=== PATIENT | male | born 1955 | race Caucasian/White ===

== ENCOUNTER 2016-12-13 03:30 | Emergency (ER) | payer OTHER ==
[~2016-12-13] VITALS: Ht 167.6 cm; Wt 101.0 kg
[~2016-12-13 03:30] MED LIST: AMLO-512 PO; ASPI-449 PO; ATOR10TA84; CLON0.2T PO; HYDR25TA PO; INSLAN SQ; METF1000 PO
[2016-12-13 06:54] VITALS: BP 110/74
== END 2016-12-13 06:57 | disposition home or self-care (01) ==
LOC: EMS 03:31
DX: S01.01XA Laceration without foreign body of scalp, initial encounter (principal); E11.9 Type 2 diabetes mellitus without complications; E78.00 Pure hypercholesterolemia, unspecified; I10 Essential (primary) hypertension; F17.210 Nicotine dependence, cigarettes, uncomplicated; Z79.4 Long term (current) use of insulin; Z88.0 Allergy status to penicillin; Z88.8 Allergy status to other drugs, medicaments and biological substances; Y00.XXXA Assault by blunt object, initial encounter; Y93.89 Activity, other specified; Y92.89 Other specified places as the place of occurrence of the external cause; Y99.8 Other external cause status
CPT/HCPCS: 12001; 70450; 82962; 99284

== ENCOUNTER 2018-02-18 05:53 | Emergency (ER) | payer OTHER ==
[~2018-02-18] VITALS: Ht 167.6 cm; Wt 101.0 kg
[2018-02-18 06:12] LABS: GLUCOSE,POINT OF CARE 209 MG/DL (70-110)
[2018-02-18] MEDS ORDERED: CYCLOBENZAPRINE HCL 10 MG TABLET PO ONE (07:45)
[2018-02-18] MEDS ORDERED: OxyCODONE HCL/ACETAMINOPHEN 5-325 MG TABLET PO ONE (07:45)
[2018-02-18 08:29] LABS: APPEARANCE,URINE CLEAR (CLEAR); BILIRUBIN,URINE NEGATIVE (NEGATIVE); GLUCOSE, URINE (UA) >=1000 mg/dL (NEGATIVE); KETONES,URINE NEGATIVE (NEGATIVE); LEUKOCYTE ESTERASE ,URINE NEGATIVE (NEGATIVE); NITRATE,URINE NEGATIVE (NEGATIVE); OCCULT BLOOD,URINE NEGATIVE (NEGATIVE); PH,URINE 5.5 (5.0-8.0); PROTEIN,URINE NEGATIVE (NEGATIVE); UROBILINOGEN,URINE 0.2 mg/dL (<=1.0)
[2018-02-18 08:49] LABS: BACTERIA,URINE None Seen /HPF (None Seen); RBC,URINE None Seen /HPF (0-2); WBC,URINE None Seen /HPF (0-5)
[2018-02-18 09:21] VITALS: BP 131/84
== END 2018-02-18 09:25 | disposition home or self-care (01) ==
LOC: EMS 05:53
DX: M51.36 Other intervertebral disc degeneration, lumbar region (principal); E11.9 Type 2 diabetes mellitus without complications; E78.00 Pure hypercholesterolemia, unspecified; I10 Essential (primary) hypertension; F17.210 Nicotine dependence, cigarettes, uncomplicated; Z88.0 Allergy status to penicillin; Z88.8 Allergy status to other drugs, medicaments and biological substances; Z79.4 Long term (current) use of insulin
CPT/HCPCS: 72131; 82962; 99285

== ENCOUNTER 2019-02-27 23:15 | Emergency (ER) | payer MEDICAID, OTHER ==
[~2019-02-27] VITALS: Ht 167.6 cm; Wt 104.5 kg
[~2019-02-27 23:15] MED LIST changes: -AMLO-512 PO; -METF1000 PO
[2019-02-27] MEDS ORDERED: INSLAN SQ (23:30)
[2019-02-27 23:39] LABS: GLUCOSE,POINT OF CARE 207 MG/DL (70-110)
[2019-02-28] MEDS ORDERED: SODIUM CHLORIDE 0.9% 1,000 ML IV ONE (00:30)
[2019-02-28 01:16] LABS: BASOPHILS % (AUTO) 1.2 % (0.0-2.0); EOSINOPHILS % (AUTO) 1.6 % (1.0-6.0); HEMATOCRIT 47.7 % (41-53); HEMOGLOBIN 15.7 g/dL (13.5-17.5); LYMPHOCYTES % (AUTO) 25.5 % (22.0-44.0); MEAN CORPUSCULAR HEMOGLOBIN 29.5 pg (26.0-34.0); MEAN CORPUSCULAR VOLUME 90 fL (80-100); MONOCYTES # (AUTO) 0.5 K/uL (0.1-1.0); MONOCYTES % (AUTO) 11.4 % (2.0-9.0); NEUTROPHILS # (AUTO) 2.4 K/uL (1.8-7.7); NEUTROPHILS % (AUTO) 60.3 % (40.0-70.0); PLATELET COUNT (AUTO) 188 K/uL (150-450); RED BLOOD CELL COUNT(AUTO) 5.33 MIL/uL (4.50-5.90); RED CELL DISTRIBUTION WIDTH 14.4 % (11.5-14.5)
[2019-02-28 01:20] LABS: APPEARANCE,URINE CLEAR (CLEAR); BILIRUBIN,URINE NEGATIVE (NEGATIVE); GLUCOSE, URINE (UA) NEGATIVE (NEGATIVE); KETONES,URINE NEGATIVE (NEGATIVE); LEUKOCYTE ESTERASE ,URINE NEGATIVE (NEGATIVE); NITRATE,URINE NEGATIVE (NEGATIVE); OCCULT BLOOD,URINE NEGATIVE (NEGATIVE); PROTEIN,URINE NEGATIVE (NEGATIVE)
[2019-02-28 01:21] LABS: CALCIUM, TOTAL 8.9 mg/dL (8.8-10.5); CREATININE 1.47 mg/dL (0.60-1.30); POTASSIUM 3.6 mmol/L (3.5-5.1)
[2019-02-28 01:27] LABS: ALBUMIN 3.7 g/dL (3.4-5.0); BILIRUBIN,TOTAL 0.7 mg/dL (0.1-1.0); TOTAL PROTEIN, SERUM 7.9 g/dL (6.4-8.2)
[2019-02-28 01:59] VITALS: BP 123/85
== END 2019-02-28 02:28 | disposition home or self-care (01) ==
LOC: EMS 23:17
DX: R19.7 Diarrhea, unspecified (principal); I10 Essential (primary) hypertension; E11.9 Type 2 diabetes mellitus without complications; E78.00 Pure hypercholesterolemia, unspecified; F17.210 Nicotine dependence, cigarettes, uncomplicated; Z88.0 Allergy status to penicillin; Z88.8 Allergy status to other drugs, medicaments and biological substances; Z79.4 Long term (current) use of insulin; Z79.899 Other long term (current) drug therapy
CPT/HCPCS: 36415; 80053; 81003; 82962; 83690; 85025; 96360; 99283; J7030

== ENCOUNTER 2019-12-07 13:05 | Emergency (ER) | payer MEDICAID ==
[~2019-12-07] VITALS: Ht 167.6 cm; Wt 81.8 kg
[2019-12-07 13:19] LABS: GLUCOSE,POINT OF CARE 69 MG/DL (70-110)
[2019-12-07] MEDS ORDERED: ACETAMINOPHEN 500 MG TABLET PO ONE ×2 (15:15→16:00)
[2019-12-07 17:07] VITALS: BP 121/95
== END 2019-12-07 17:15 | disposition left against medical advice (07) ==
LOC: EMS 13:06
DX: M13.851 Other specified arthritis, right hip (principal); E11.9 Type 2 diabetes mellitus without complications; E78.00 Pure hypercholesterolemia, unspecified; G89.29 Other chronic pain; I10 Essential (primary) hypertension; F17.210 Nicotine dependence, cigarettes, uncomplicated; Z98.890 Other specified postprocedural states; Z88.0 Allergy status to penicillin; Z88.5 Allergy status to narcotic agent; Z79.4 Long term (current) use of insulin; Z79.899 Other long term (current) drug therapy; W18.39XA Other fall on same level, initial encounter; Y93.89 Activity, other specified; Y92.89 Other specified places as the place of occurrence of the external cause; Y99.8 Other external cause status
CPT/HCPCS: 73502

== ENCOUNTER 2019-12-29 16:53 | Emergency (ER) | payer MEDICAID, OTHER ==
[~2019-12-29] VITALS: Ht 167.6 cm; Wt 100.0 kg
[2019-12-29 17:20] LABS: GLUCOSE,POINT OF CARE 142 MG/DL (70-110)
[2019-12-29] MEDS ORDERED: HYDROmorphone 2 MG/ML SYRINGE IVP ONE (17:30)
[2019-12-29] MEDS ORDERED: ONDANSETRON HCL 4 MG/2 ML VIAL IVP ONE (17:30)
[2019-12-29 17:42] LABS: BASOPHILS % (AUTO) 1.1 % (0.0-2.0); EOSINOPHILS % (AUTO) 3.2 % (1.0-6.0); HEMATOCRIT 44.5 % (41-53); HEMOGLOBIN 14.5 g/dL (13.5-17.5); LYMPHOCYTES # (AUTO) 1.4 K/uL (1.0-4.8); LYMPHOCYTES % (AUTO) 25.4 % (22.0-44.0); MEAN CORPUSCULAR HEMOGLOBIN 28.9 pg (26.0-34.0); MEAN CORPUSCULAR HGB CONC 32.5 G/dL (31.0-37.0); MEAN CORPUSCULAR VOLUME 89 fL (80-100); MONOCYTES # (AUTO) 0.4 K/uL (0.1-1.0); MONOCYTES % (AUTO) 7.5 % (2.0-9.0); NEUTROPHILS # (AUTO) 3.6 K/uL (1.8-7.7); NEUTROPHILS % (AUTO) 62.8 % (40.0-70.0); PLATELET COUNT (AUTO) 227 K/uL (150-450); RED CELL DISTRIBUTION WIDTH 15.3 % (11.5-14.5)
[2019-12-29 17:56] LABS: ANION GAP 9 mmol/L (8-16); CALCIUM, TOTAL 8.8 mg/dL (8.8-10.5); CARBON DIOXIDE 26 mmol/L (22-29); CHLORIDE 103 mmol/L (98-107); CREATININE 1.51 mg/dL (0.60-1.30); GLOMERULAR FILTR. RATE CALC 57 mL/min (>60); GLUCOSE,RANDOM 141 mg/dL (70-110); POTASSIUM 4.4 mmol/L (3.5-5.1); SODIUM SERUM 138 mmol/L (136-145); UREA NITROGEN, BLOOD 22 mg/dL (7-18)
[2019-12-29 18:05] LABS: LACTIC ACID 1.5 mmol/L (0.4-2.0)
[2019-12-29 18:21] LABS: ALANINE AMINOTRANSFERASE 31 U/L (12-78); ALBUMIN 3.4 g/dL (3.4-5.0); ALKALINE PHOSPHATASE 111 U/L (46-116); ASPARTATE AMINOTRANSFERASE 17 U/L (15-37); BILIRUBIN,TOTAL 0.5 mg/dL (0.1-1.0); CREATINE KINASE, TOTAL ONLY 380 U/L (39-308); LIPASE 100 U/L (73-393); TOTAL PROTEIN, SERUM 7.4 g/dL (6.4-8.2)
[2019-12-29] MEDS ORDERED: IPRA4AER IH (18:41)
[2019-12-29] MEDS ORDERED: GABA-531 PO (18:41)
[2019-12-29] MEDS ORDERED: ATOR20TA86 PO (18:41)
[2019-12-29] MEDS ORDERED: AMLO10TA55 PO (18:41)
[2019-12-29] MEDS ORDERED: DULO30CA52 PO (18:41)
[2019-12-29] MEDS ORDERED: LISI-618 PO (18:41)
[2019-12-29] MEDS ORDERED: OMEP20CA12 PO (18:41)
[2019-12-29] MEDS ORDERED: INSU100I26 SQ (18:41)
[2019-12-29 19:15] VITALS: BP 130/80
[2019-12-29 19:22] LABS: APPEARANCE,URINE CLOUDY (CLEAR); BILIRUBIN,URINE NEGATIVE (NEGATIVE); GLUCOSE, URINE (UA) NEGATIVE (NEGATIVE); KETONES,URINE NEGATIVE (NEGATIVE); LEUKOCYTE ESTERASE ,URINE MODERATE (NEGATIVE); NITRATE,URINE NEGATIVE (NEGATIVE); OCCULT BLOOD,URINE NEGATIVE (NEGATIVE); PH,URINE 6.5 (5.0-8.0); PROTEIN,URINE NEGATIVE (NEGATIVE)
[2019-12-29 19:46] LABS: BACTERIA,URINE Many /HPF (None Seen); RBC,URINE 0-2 /HPF (0-2)
== END 2019-12-29 20:40 | disposition home or self-care (01) ==
LOC: EMS 16:53
DX: S00.03XA Contusion of scalp, initial encounter (principal); S40.012A Contusion of left shoulder, initial encounter; M16.11 Unilateral primary osteoarthritis, right hip; E11.9 Type 2 diabetes mellitus without complications; E78.00 Pure hypercholesterolemia, unspecified; G89.29 Other chronic pain; I10 Essential (primary) hypertension; F17.210 Nicotine dependence, cigarettes, uncomplicated; Z79.899 Other long term (current) drug therapy; Z98.890 Other specified postprocedural states; Z88.0 Allergy status to penicillin; Z88.5 Allergy status to narcotic agent; W18.39XA Other fall on same level, initial encounter; Y93.89 Activity, other specified; Y92.89 Other specified places as the place of occurrence of the external cause; Y99.8 Other external cause status
CPT/HCPCS: 36415; 70450; 71045; 72125; 73030; 73502; 80053; 81001; 82550; 82962; 83605; 83690; 84484; 85025; 87086; 93005; 96374; 96375; 99285; 99406; G0480; J1170; J2405

== ENCOUNTER 2021-03-01 18:31 | Emergency (ER) | payer MEDICAID ==
[~2021-03-01 18:31] MED LIST changes: +AMLO10TA55 PO; -ATOR10TA84; +ATOR20TA86 PO; +CIPR-278 PO; -CLON0.2T PO; +DULO30CA52 PO; -INSLAN SQ; +INSU100I26 SQ; +IPRA4AER IH; +LISI20TA24 PO; +OMEP20CA12 PO; +[UNRECOGNIZED DRUG - CODE] PO
== END 2021-03-01 19:07 | disposition home or self-care (01) ==
LOC: EMS 18:34
DX: M25.551 Pain in right hip (principal); G89.29 Other chronic pain; E11.9 Type 2 diabetes mellitus without complications; E78.00 Pure hypercholesterolemia, unspecified; I10 Essential (primary) hypertension; F17.210 Nicotine dependence, cigarettes, uncomplicated; Z88.6 Allergy status to analgesic agent; Z88.0 Allergy status to penicillin; Z79.899 Other long term (current) drug therapy
CPT/HCPCS: 99283; Z7502

== ENCOUNTER 2021-03-19 15:35 | Emergency (ER) | payer MEDICAID ==
[~2021-03-19] VITALS: Ht 167.6 cm; Wt 104.5 kg
[~2021-03-19 15:35] MED LIST changes: +CLON0.2T PO; -[UNRECOGNIZED DRUG - CODE] PO
[2021-03-19] MEDS ORDERED: ACETAMINOPHEN 325 MG TABLET PO ONE (17:00)
[2021-03-19 17:19] LABS: GLUCOSE,POINT OF CARE 256 MG/DL (70-110)
[2021-03-19] MEDS ORDERED: LIDOCAINE 5% TRANSDERMAL PATCH TD ONE (18:30)
[2021-03-19 19:26] VITALS: BP 140/80
== END 2021-03-19 19:39 | disposition home or self-care (01) ==
LOC: EMS 15:38
DX: M16.11 Unilateral primary osteoarthritis, right hip (principal); M54.9 Dorsalgia, unspecified; E11.9 Type 2 diabetes mellitus without complications; E78.00 Pure hypercholesterolemia, unspecified; I10 Essential (primary) hypertension; F17.210 Nicotine dependence, cigarettes, uncomplicated; G89.29 Other chronic pain; Z88.5 Allergy status to narcotic agent; Z88.0 Allergy status to penicillin; Z79.4 Long term (current) use of insulin; Z79.82 Long term (current) use of aspirin; V00.811A Fall from moving wheelchair (powered), initial encounter; Y93.89 Activity, other specified; Y92.89 Other specified places as the place of occurrence of the external cause; Y99.8 Other external cause status
CPT/HCPCS: 73502; 82962; 99283

== ENCOUNTER 2021-07-03 00:47 | Emergency (ER) | payer MEDICAID ==
[~2021-07-03] VITALS: Ht 172.7 cm; Wt 100.0 kg
[2021-07-03 02:21] LABS: BASOPHILS % (AUTO) 0.5 % (0.0-2.0); EOSINOPHILS % (AUTO) 0.3 % (1.0-6.0); HEMATOCRIT 47.3 % (41-53); HEMOGLOBIN 15.5 g/dL (13.5-17.5); LYMPHOCYTES # (AUTO) 0.5 K/uL (1.0-4.8); MEAN CORPUSCULAR HEMOGLOBIN 29.6 pg (26.0-34.0); MEAN CORPUSCULAR HGB CONC 32.8 G/dL (31.0-37.0); MEAN CORPUSCULAR VOLUME 90 fL (80-100); MONOCYTES # (AUTO) 0.8 K/uL (0.1-1.0); MONOCYTES % (AUTO) 18.6 % (2.0-9.0); NEUTROPHILS # (AUTO) 2.9 K/uL (1.8-7.7); NEUTROPHILS % (AUTO) 69.6 % (40.0-70.0); PLATELET COUNT (AUTO) 196 K/uL (150-450); RED BLOOD CELL COUNT(AUTO) 5.25 MIL/uL (4.50-5.90); RED CELL DISTRIBUTION WIDTH 13.9 % (11.5-14.5)
[2021-07-03 02:24] LABS: COVID AG,FIA SOURCE NASOPHARYNGEAL
[2021-07-03 02:30] LABS: ANION GAP 7 mmol/L (8-16); CALCIUM, TOTAL 8.8 mg/dL (8.8-10.5); CARBON DIOXIDE 28 mmol/L (22-29); CHLORIDE 99 mmol/L (98-107); GLOMERULAR FILTR. RATE CALC > 60 mL/min (>60); GLUCOSE,RANDOM 273 mg/dL (70-110); POTASSIUM 4.2 mmol/L (3.5-5.1); SODIUM SERUM 134 mmol/L (136-145); UREA NITROGEN, BLOOD 13 mg/dL (7-18)
[2021-07-03 02:36] LABS: ALANINE AMINOTRANSFERASE 27 U/L (12-78); ALBUMIN 3.7 g/dL (3.4-5.0); ALKALINE PHOSPHATASE 119 U/L (46-116); ASPARTATE AMINOTRANSFERASE 26 U/L (15-37); BILIRUBIN,TOTAL 0.5 mg/dL (0.1-1.0)
[2021-07-03 02:38] LABS: LACTIC ACID 1.7 mmol/L (0.4-2.0)
[2021-07-03] MEDS ORDERED: ACETAMINOPHEN 325 MG TABLET PO ONE (02:45)
[2021-07-03 02:55] LABS: C-REACTIVE PROTEIN QUANT 2.11 mg/dL (0.00-0.30)
[2021-07-03 04:15] VITALS: BP 164/135
== END 2021-07-03 05:41 | disposition home or self-care (01) ==
LOC: EMS 00:49
DX: U07.1 COVID-19 (principal); M25.551 Pain in right hip; M25.552 Pain in left hip; I10 Essential (primary) hypertension; E11.9 Type 2 diabetes mellitus without complications; E78.00 Pure hypercholesterolemia, unspecified; F17.210 Nicotine dependence, cigarettes, uncomplicated; Z88.0 Allergy status to penicillin; Z88.8 Allergy status to other drugs, medicaments and biological substances; Z79.899 Other long term (current) drug therapy
CPT/HCPCS: 36415; 71045; 73503; 80053; 82728; 83605; 83615; 84145; 85025; 85379; 86140; 87040; 87426; 99284; U0003

== ENCOUNTER 2021-07-09 19:08 | Inpatient (IN) | payer MEDICAID, OTHER ==
[~2021-07-09] VITALS: Ht 167.6 cm; Wt 92.5 kg
[2021-07-09 20:24] LABS: BASOPHILS % (AUTO) 0.5 % (0.0-2.0); EOSINOPHILS % (AUTO) 0.2 % (1.0-6.0); HEMATOCRIT 51.3 % (41-53); LYMPHOCYTES # (AUTO) 0.7 K/uL (1.0-4.8); MEAN CORPUSCULAR HEMOGLOBIN 29.2 pg (26.0-34.0); MEAN CORPUSCULAR VOLUME 89 fL (80-100); MONOCYTES # (AUTO) 0.5 K/uL (0.1-1.0); MONOCYTES % (AUTO) 12.9 % (2.0-9.0); NEUTROPHILS # (AUTO) 2.8 K/uL (1.8-7.7); NEUTROPHILS % (AUTO) 68.4 % (40.0-70.0); PLATELET COUNT (AUTO) 179 K/uL (150-450); RED CELL DISTRIBUTION WIDTH 13.8 % (11.5-14.5)
[2021-07-09] MEDS ORDERED: ONDANSETRON HCL 4 MG/2 ML VIAL IVP ONE (20:30)
[2021-07-09] MEDS ORDERED: MORPHINE SULFATE 2 MG/ML SYRINGE IVP ONE (20:30)
[2021-07-09 20:43] LABS: ANION GAP 7 mmol/L (8-16); CALCIUM, TOTAL 8.5 mg/dL (8.8-10.5); CARBON DIOXIDE 24 mmol/L (22-29); CHLORIDE 100 mmol/L (98-107); CREATININE 1.24 mg/dL (0.60-1.30); GLOMERULAR FILTR. RATE CALC > 60 mL/min (>60); GLUCOSE,RANDOM 341 mg/dL (70-110); POTASSIUM 4.8 mmol/L (3.5-5.1); SODIUM SERUM 131 mmol/L (136-145); UREA NITROGEN, BLOOD 24 mg/dL (7-18)
[2021-07-09 20:46] LABS: B-TYPE NATRIURETIC PEPTIDE 33 pg/mL (0-100)
[2021-07-09 20:48] LABS: D-DIMER 12.02 mg/L FEU (0.00-0.50); INR 1.1 (0.9-1.1); PROTHROMBIN TIME 11.5 SEC (9.4-11.6)
[2021-07-09 20:52] LABS: LACTIC ACID 1.8 mmol/L (0.4-2.0)
[2021-07-09 21:08] LABS: ALANINE AMINOTRANSFERASE 32 U/L (12-78); ALBUMIN 2.9 g/dL (3.4-5.0); ALKALINE PHOSPHATASE 88 U/L (46-116); ASPARTATE AMINOTRANSFERASE 32 U/L (15-37); BILIRUBIN,TOTAL 0.8 mg/dL (0.1-1.0); C-REACTIVE PROTEIN QUANT 11.14 mg/dL (0.00-0.30); CREATINE KINASE, TOTAL ONLY 428 U/L (39-308); FERRITIN 642 ng/mL (26-388); LIPASE 141 U/L (73-393); TOTAL PROTEIN, SERUM 8.2 g/dL (6.4-8.2)
[2021-07-09] MEDS ORDERED: SODIUM CHLORIDE 0.9% 500 ML IV ONE (21:15)
[2021-07-09] MEDS ORDERED: ONDANSETRON HCL 4 MG/2 ML VIAL IVP PRN (21:15)
[2021-07-09] MEDS ORDERED: HEPARIN SODIUM,PORCINE 5,000 UNITS/ML VIAL IVP PRN ×3 (21:15→21:16)
[2021-07-09] MEDS ORDERED: HEPARIN SODIUM 25000 UNITS/D5W 250 ML IV PRN (21:15)
[2021-07-09] MEDS ORDERED: SODIUM CHLORIDE 0.9% 0 ML ONE (21:23)
[2021-07-09] MEDS ORDERED: IOHEXOL 350 MG/ML 100 ML VIAL ONE (21:24)
[2021-07-09] MEDS ORDERED: DEXTROSE 50%-WATER 25 GM/50 ML SYRINGE IVP PRN (21:30)
[2021-07-09 21:52] LABS: INR 1.1 (0.9-1.1); PROTHROMBIN TIME 11.8 SEC (9.4-11.6)
[2021-07-09] MEDS: ACETAMINOPHEN 325 MG TABLET PO PRN (22:53)
[2021-07-09] MEDS: INSULIN GLARGINE,HUM.REC.ANLOG 100 UNITS/ML SQ SCH (22:58)
[2021-07-09 23:22] LABS: GLUCOMETER DEV NAME(LOC) ERT.5; GLUCOSE,POINT OF CARE 331 MG/DL (70-110)
[2021-07-10 01:53] LABS: COVID AG,FIA SOURCE NASOPHARYNGEAL
[2021-07-10 03:10] LABS: HEMATOCRIT 50.8 % (41-53); HEMOGLOBIN 16.5 g/dL (13.5-17.5); MEAN CORPUSCULAR HEMOGLOBIN 28.9 pg (26.0-34.0); MEAN CORPUSCULAR HGB CONC 32.6 G/dL (31.0-37.0); MEAN CORPUSCULAR VOLUME 89 fL (80-100); RED BLOOD CELL COUNT(AUTO) 5.71 MIL/uL (4.50-5.90); RED CELL DISTRIBUTION WIDTH 14.1 % (11.5-14.5)
[2021-07-10 03:11] LABS: BASOPHILS % (AUTO) 1.8 % (0.0-2.0); EOSINOPHILS % (AUTO) 0.5 % (1.0-6.0); LYMPHOCYTES # (AUTO) 0.9 K/uL (1.0-4.8); MONOCYTES # (AUTO) 0.5 K/uL (0.1-1.0); MONOCYTES % (AUTO) 12.5 % (2.0-9.0); NEUTROPHILS # (AUTO) 2.7 K/uL (1.8-7.7); NEUTROPHILS % (AUTO) 64.2 % (40.0-70.0); PLATELET COUNT (AUTO) 162 K/uL (150-450)
[2021-07-10 03:20] LABS: ANION GAP 7 mmol/L (8-16); CALCIUM, TOTAL 8.4 mg/dL (8.8-10.5); CARBON DIOXIDE 27 mmol/L (22-29); CHLORIDE 101 mmol/L (98-107); CREATININE 1.22 mg/dL (0.60-1.30); GLOMERULAR FILTR. RATE CALC > 60 mL/min (>60); GLUCOSE,RANDOM 311 mg/dL (70-110); SODIUM SERUM 135 mmol/L (136-145); UREA NITROGEN, BLOOD 28 mg/dL (7-18)
[2021-07-10] MEDS: INSULIN LISPRO 100 UNITS/ML SQ PRN ×4 (08:40→22:20)
[2021-07-10] MEDS ORDERED: CloNIDine HCL 0.2 MG TABLET PO SCH (09:00)
[2021-07-10] MEDS: OMEPRAZOLE 20 MG CAPSULE PO SCH (10:50)
[2021-07-10] MEDS: DOCUSATE SODIUM 100 MG CAPSULE PO SCH ×2 (10:51→21:00)
[2021-07-10] MEDS: ATORVASTATIN CALCIUM 20 MG TABLET PO SCH (10:51)
[2021-07-10] MEDS: LISINOPRIL 20 MG TABLET PO SCH (10:51)
[2021-07-10] MEDS: HYDROCHLOROTHIAZIDE 25 MG TABLET PO SCH (10:51)
[2021-07-10] MEDS: DULoxetine HCL 30 MG CAPSULE PO SCH (10:51)
[2021-07-10] MEDS: AmLODIPine BESYLATE 10 MG TABLET PO SCH (10:51)
[2021-07-10] MEDS: ASPIRIN 81 MG DR TABLET PO SCH (10:53)
[2021-07-10 12:28] LABS: GLUCOMETER DEV NAME(LOC) ERT.5; GLUCOSE,POINT OF CARE 293 MG/DL (70-110)
[2021-07-10 17:36] LABS: GLUCOMETER DEV NAME(LOC) ERT.5; GLUCOSE,POINT OF CARE 305 MG/DL (70-110)
[2021-07-10] MEDS: MORPHINE SULFATE 2 MG/ML SYRINGE IVP PRN (21:39)
[2021-07-10 21:45] VITALS: BP 96/63
[2021-07-10] MEDS: INSULIN GLARGINE,HUM.REC.ANLOG 100 UNITS/ML SQ SCH (22:20)
[2021-07-11] VITALS (7 sets, daily range): BP systolic 98–140; BP diastolic 66–86
[2021-07-11] MEDS: MORPHINE SULFATE 2 MG/ML SYRINGE IVP PRN ×2 (01:35→23:42)
[2021-07-11 03:43] LABS: GLUCOMETER DEV NAME(LOC) 5S.2B; GLUCOSE,POINT OF CARE 284 MG/DL (70-110)
[2021-07-11] MEDS: INSULIN LISPRO 100 UNITS/ML SQ PRN ×4 (06:11→20:35)
[2021-07-11] MEDS: LISINOPRIL 20 MG TABLET PO SCH (08:15)
[2021-07-11] MEDS: AmLODIPine BESYLATE 10 MG TABLET PO SCH (08:15)
[2021-07-11] MEDS: ATORVASTATIN CALCIUM 20 MG TABLET PO SCH (08:15)
[2021-07-11] MEDS: HYDROCHLOROTHIAZIDE 25 MG TABLET PO SCH (08:15)
[2021-07-11] MEDS: DOCUSATE SODIUM 100 MG CAPSULE PO SCH ×2 (08:16→20:19)
[2021-07-11] MEDS: OMEPRAZOLE 20 MG CAPSULE PO SCH (08:16)
[2021-07-11] MEDS: DULoxetine HCL 30 MG CAPSULE PO SCH (08:16)
[2021-07-11] MEDS: ASPIRIN 81 MG DR TABLET PO SCH (09:00)
[2021-07-11] MEDS: INSULIN GLARGINE,HUM.REC.ANLOG 100 UNITS/ML SQ SCH ×2 (11:08→20:34)
[2021-07-11 12:45] LABS: GLUCOMETER DEV NAME(LOC) 5S.2B; GLUCOSE,POINT OF CARE 338 MG/DL (70-110)
[2021-07-11 13:43] LABS: GLUCOMETER DEV NAME(LOC) 5N.1C; GLUCOSE,POINT OF CARE 274 MG/DL (70-110)
[2021-07-11 19:14] LABS: GLUCOMETER DEV NAME(LOC) 5S.1; GLUCOSE,POINT OF CARE 279 MG/DL (70-110)
[2021-07-11] MEDS: ACETAMINOPHEN 325 MG TABLET PO PRN (20:19)
[2021-07-12 04:59] VITALS: BP 140/82
[2021-07-12] MEDS: INSULIN LISPRO 100 UNITS/ML SQ PRN ×3 (06:22→20:16)
[2021-07-12 08:00] VITALS: BP 131/81
[2021-07-12 08:09] LABS: GLUCOMETER DEV NAME(LOC) 5S.1; GLUCOSE,POINT OF CARE 151 MG/DL (70-110)
[2021-07-12 08:09] LABS: GLUCOMETER DEV NAME(LOC) 5S.1; GLUCOSE,POINT OF CARE 255 MG/DL (70-110)
[2021-07-12] MEDS: DULoxetine HCL 30 MG CAPSULE PO SCH (08:44)
[2021-07-12] MEDS: OMEPRAZOLE 20 MG CAPSULE PO SCH (08:45)
[2021-07-12] MEDS: LISINOPRIL 20 MG TABLET PO SCH (08:45)
[2021-07-12] MEDS: HYDROCHLOROTHIAZIDE 25 MG TABLET PO SCH (08:45)
[2021-07-12] MEDS: ATORVASTATIN CALCIUM 20 MG TABLET PO SCH (08:45)
[2021-07-12] MEDS: INSULIN GLARGINE,HUM.REC.ANLOG 100 UNITS/ML SQ SCH ×3 (08:50→20:15)
[2021-07-12] MEDS: MORPHINE SULFATE 2 MG/ML SYRINGE IVP PRN ×2 (08:51→23:28)
[2021-07-12] MEDS: ASPIRIN 81 MG DR TABLET PO SCH (09:00)
[2021-07-12] MEDS: DOCUSATE SODIUM 100 MG CAPSULE PO SCH ×2 (09:00→20:07)
[2021-07-12 11:13] VITALS: BP 128/80
[2021-07-12] MEDS: ESCITALOPRAM OXALATE 10 MG TABLET PO SCH (14:49)
[2021-07-12 16:00] VITALS: BP 126/78
[2021-07-12 17:43] LABS: GLUCOMETER DEV NAME(LOC) 5S.1; GLUCOSE,POINT OF CARE 216 MG/DL (70-110)
[2021-07-12 17:43] LABS: GLUCOMETER DEV NAME(LOC) 5S.1; GLUCOSE,POINT OF CARE 276 MG/DL (70-110)
[2021-07-12 19:25] VITALS: BP 105/72
[2021-07-12] MEDS: ENOXAPARIN SODIUM 40 MG/0.4 ML PF SYRINGE SQ SCH (20:07)
[2021-07-12 23:35] VITALS: BP 122/93
[2021-07-13 01:02] LABS: GLUCOMETER DEV NAME(LOC) 5S.2B; GLUCOSE,POINT OF CARE 261 MG/DL (70-110)
[2021-07-13 04:12] VITALS: BP 125/80
[2021-07-13] MEDS: ACETAMINOPHEN 325 MG TABLET PO PRN (06:53)
[2021-07-13] MEDS: INSULIN LISPRO 100 UNITS/ML SQ PRN ×3 (07:01→17:56)
[2021-07-13 08:01] LABS: BASOPHILS % (AUTO) 1.5 % (0.0-2.0); EOSINOPHILS % (AUTO) 0.3 % (1.0-6.0); HEMATOCRIT 45.4 % (41-53); HEMOGLOBIN 14.8 g/dL (13.5-17.5); LYMPHOCYTES # (AUTO) 0.8 K/uL (1.0-4.8); LYMPHOCYTES % (AUTO) 14.1 % (22.0-44.0); MEAN CORPUSCULAR HEMOGLOBIN 29.2 pg (26.0-34.0); MEAN CORPUSCULAR HGB CONC 32.7 G/dL (31.0-37.0); MEAN CORPUSCULAR VOLUME 90 fL (80-100); MONOCYTES # (AUTO) 0.9 K/uL (0.1-1.0); MONOCYTES % (AUTO) 16.3 % (2.0-9.0); NEUTROPHILS # (AUTO) 3.7 K/uL (1.8-7.7); NEUTROPHILS % (AUTO) 67.8 % (40.0-70.0); PLATELET COUNT (AUTO) 208 K/uL (150-450); RED BLOOD CELL COUNT(AUTO) 5.07 MIL/uL (4.50-5.90)
[2021-07-13 08:42] VITALS: BP 126/86
[2021-07-13] MEDS: DULoxetine HCL 30 MG CAPSULE PO SCH ×2 (09:00→09:05)
[2021-07-13] MEDS: HYDROCHLOROTHIAZIDE 25 MG TABLET PO SCH ×2 (09:00→09:04)
[2021-07-13] MEDS: ESCITALOPRAM OXALATE 10 MG TABLET PO SCH ×2 (09:00→09:06)
[2021-07-13] MEDS: ASPIRIN 81 MG DR TABLET PO SCH ×2 (09:00→09:06)
[2021-07-13] MEDS: ATORVASTATIN CALCIUM 20 MG TABLET PO SCH (09:00)
[2021-07-13] MEDS: DOCUSATE SODIUM 100 MG CAPSULE PO SCH ×3 (09:00→20:25)
[2021-07-13] MEDS: LISINOPRIL 20 MG TABLET PO SCH ×2 (09:00→09:06)
[2021-07-13] MEDS: OMEPRAZOLE 20 MG CAPSULE PO SCH ×2 (09:00→09:05)
[2021-07-13] MEDS: ENOXAPARIN SODIUM 40 MG/0.4 ML PF SYRINGE SQ SCH ×2 (09:04→20:25)
[2021-07-13] MEDS: INSULIN GLARGINE,HUM.REC.ANLOG 100 UNITS/ML SQ SCH ×2 (09:04→20:25)
[2021-07-13] MEDS ORDERED: MAGNESIUM HYDROXIDE SUSPENSION 30 ML UDCUP PO PRN (10:15)
[2021-07-13] MEDS: MORPHINE SULFATE 2 MG/ML SYRINGE IVP PRN (10:41)
[2021-07-13 12:22] VITALS: BP 112/62
[2021-07-13 16:00] VITALS: BP 125/75
[2021-07-13 18:00] LABS: GLUCOMETER DEV NAME(LOC) 5S.2B; GLUCOSE,POINT OF CARE 232 MG/DL (70-110)
[2021-07-13 19:43] VITALS: BP 129/81
[2021-07-13 20:17] LABS: GLUCOMETER DEV NAME(LOC) 5S.1; GLUCOSE,POINT OF CARE 217 MG/DL (70-110)
[2021-07-13 20:17] LABS: GLUCOMETER DEV NAME(LOC) 5S.1; GLUCOSE,POINT OF CARE 215 MG/DL (70-110)
[2021-07-14 00:12] VITALS: BP 109/73
[2021-07-14 03:57] VITALS: BP 147/91
[2021-07-14] MEDS: INSULIN LISPRO 100 UNITS/ML SQ PRN ×4 (06:37→21:18)
[2021-07-14 07:29] VITALS: BP 146/94
[2021-07-14] MEDS: OMEPRAZOLE 20 MG CAPSULE PO SCH (08:53)
[2021-07-14] MEDS: HYDROCHLOROTHIAZIDE 25 MG TABLET PO SCH (08:53)
[2021-07-14] MEDS: DOCUSATE SODIUM 100 MG CAPSULE PO SCH ×2 (08:53→21:00)
[2021-07-14] MEDS: ESCITALOPRAM OXALATE 10 MG TABLET PO SCH (08:54)
[2021-07-14] MEDS: DULoxetine HCL 30 MG CAPSULE PO SCH (08:54)
[2021-07-14] MEDS: ASPIRIN 81 MG DR TABLET PO SCH (08:54)
[2021-07-14] MEDS: ATORVASTATIN CALCIUM 20 MG TABLET PO SCH (08:55)
[2021-07-14] MEDS: LISINOPRIL 20 MG TABLET PO SCH (08:55)
[2021-07-14] MEDS: ENOXAPARIN SODIUM 40 MG/0.4 ML PF SYRINGE SQ SCH ×2 (08:56→21:16)
[2021-07-14] MEDS: INSULIN GLARGINE,HUM.REC.ANLOG 100 UNITS/ML SQ SCH ×2 (08:59→21:22)
[2021-07-14 11:09] LABS: GLUCOMETER DEV NAME(LOC) 5S.1; GLUCOSE,POINT OF CARE 254 MG/DL (70-110)
[2021-07-14] MEDS: ACETAMINOPHEN 325 MG TABLET PO PRN (11:45)
[2021-07-14 12:30] VITALS: BP 114/81
[2021-07-14 12:39] LABS: GLUCOMETER DEV NAME(LOC) 5S.2B; GLUCOSE,POINT OF CARE 300 MG/DL (70-110)
[2021-07-14 15:51] VITALS: BP 116/88
[2021-07-14 17:44] LABS: GLUCOMETER DEV NAME(LOC) 5S.1; GLUCOSE,POINT OF CARE 226 MG/DL (70-110)
[2021-07-14 19:48] VITALS: BP 106/71
[2021-07-14 23:33] LABS: GLUCOMETER DEV NAME(LOC) 5S.2B; GLUCOSE,POINT OF CARE 243 MG/DL (70-110)
[2021-07-15 00:25] VITALS: BP 118/73
[2021-07-15 03:23] VITALS: BP 118/80
[2021-07-15] MEDS: INSULIN LISPRO 100 UNITS/ML SQ PRN (06:28)
[2021-07-15] MEDS: ACETAMINOPHEN 325 MG TABLET PO PRN (06:29)
[2021-07-15 07:30] LABS: GLUCOMETER DEV NAME(LOC) 6N.1; GLUCOSE,POINT OF CARE 217 MG/DL (70-110)
[2021-07-15 08:00] VITALS: BP 113/79
[2021-07-15] MEDS: INSULIN GLARGINE,HUM.REC.ANLOG 100 UNITS/ML SQ SCH (08:43)
[2021-07-15] MEDS: ASPIRIN 81 MG DR TABLET PO SCH (08:43)
[2021-07-15] MEDS: ENOXAPARIN SODIUM 40 MG/0.4 ML PF SYRINGE SQ SCH (08:43)
[2021-07-15] MEDS: DOCUSATE SODIUM 100 MG CAPSULE PO SCH (08:43)
[2021-07-15] MEDS: LISINOPRIL 20 MG TABLET PO SCH (08:44)
[2021-07-15] MEDS: HYDROCHLOROTHIAZIDE 25 MG TABLET PO SCH (08:44)
[2021-07-15] MEDS: ATORVASTATIN CALCIUM 20 MG TABLET PO SCH (08:44)
[2021-07-15] MEDS: DULoxetine HCL 30 MG CAPSULE PO SCH (08:44)
[2021-07-15] MEDS: ESCITALOPRAM OXALATE 10 MG TABLET PO SCH (08:44)
[2021-07-15] MEDS: OMEPRAZOLE 20 MG CAPSULE PO SCH (08:44)
[2021-07-15] MEDS ORDERED: DULO30CA89 PO (12:55)
[2021-07-15] MEDS ORDERED: INSLAN SQ (12:56)
[2021-07-15] MEDS ORDERED: LISI20TA24 PO (12:58)
[2021-07-15 13:11] LABS: GLUCOMETER DEV NAME(LOC) 6N.1; GLUCOSE,POINT OF CARE 236 MG/DL (70-110)
[2021-07-15] MEDS ORDERED: HYDROCODONE/ACETAMINOPHEN 5-325 MG TABLET PO ONE (14:30)
== END 2021-07-15 14:40 | disposition home or self-care (01) | DRG 661 ==
LOC: EMS 19:11 → 5N 07-10 18:46 → 6N 07-15 04:20
PROVIDERS: ADMIT Internal Medicine; ATTEND Internal Medicine
DX: D68.69 Other thrombophilia (principal); D68.8 Other specified coagulation defects; U09.9 Post COVID-19 condition, unspecified; E11.65 Type 2 diabetes mellitus with hyperglycemia; E78.00 Pure hypercholesterolemia, unspecified; M16.11 Unilateral primary osteoarthritis, right hip; I10 Essential (primary) hypertension; Z91.81 History of falling; Z82.49 Family history of ischemic heart disease and other diseases of the circulatory system; Z83.3 Family history of diabetes mellitus; Z88.0 Allergy status to penicillin; Z88.8 Allergy status to other drugs, medicaments and biological substances; F17.210 Nicotine dependence, cigarettes, uncomplicated; Z91.14 Patient's other noncompliance with medication regimen; Z20.822 Contact with and (suspected) exposure to COVID-19
CPT/HCPCS: 71045; 73521; 80048; 80053; 82550; 82728; 82962; 83605; 83690; 83735; 83880; 84145; 84484; 85025; 85379; 85610; 85730; 86140; 87040; 93005; 99291; J1644; J1650; J1815; J2270; J2405; J7040; J7050; Q9967; 36415-L1; 36415-TC; U0003

== ENCOUNTER 2021-09-02 07:55 | Emergency (ER) | payer MEDICAID, OTHER ==
[~2021-09-02] VITALS: Ht 167.6 cm; Wt 86.4 kg
[~2021-09-02 07:55] MED LIST changes: -AMLO10TA55 PO; -ATOR20TA86 PO; -CIPR-278 PO; -CLON0.2T PO; -DULO30CA52 PO; +DULO30CA89 PO; +INSLAN SQ; -INSU100I26 SQ; -IPRA4AER IH; -OMEP20CA12 PO
[2021-09-02 08:54] LABS: BASOPHILS % (AUTO) 0.4 % (0.0-2.0); HEMATOCRIT 31.4 % (41-53); HEMOGLOBIN 10.1 g/dL (13.5-17.5); LYMPHOCYTES # (AUTO) 1.4 K/uL (1.0-4.8); LYMPHOCYTES % (AUTO) 19.9 % (22.0-44.0); MEAN CORPUSCULAR HEMOGLOBIN 28.8 pg (26.0-34.0); MEAN CORPUSCULAR HGB CONC 32.3 G/dL (31.0-37.0); MEAN CORPUSCULAR VOLUME 89 fL (80-100); MONOCYTES # (AUTO) 0.4 K/uL (0.1-1.0); MONOCYTES % (AUTO) 5.2 % (2.0-9.0); NEUTROPHILS % (AUTO) 68.5 % (40.0-70.0); PLATELET COUNT (AUTO) 410 K/uL (150-450); RED BLOOD CELL COUNT(AUTO) 3.53 MIL/uL (4.50-5.90); RED CELL DISTRIBUTION WIDTH 15.9 % (11.5-14.5)
[2021-09-02 08:55] LABS: ANION GAP 6 mmol/L (8-16); CALCIUM, TOTAL 8.5 mg/dL (8.8-10.5); CARBON DIOXIDE 31 mmol/L (22-29); CHLORIDE 106 mmol/L (98-107); CREATININE 0.77 mg/dL (0.60-1.30); GLOMERULAR FILTR. RATE CALC > 60 mL/min (>60); GLUCOSE,RANDOM 105 mg/dL (70-110); POTASSIUM 3.3 mmol/L (3.5-5.1); SODIUM SERUM 143 mmol/L (136-145); UREA NITROGEN, BLOOD 11 mg/dL (7-18)
[2021-09-02 09:00] LABS: ALANINE AMINOTRANSFERASE 32 U/L (12-78); ALBUMIN 2.5 g/dL (3.4-5.0); ALKALINE PHOSPHATASE 120 U/L (46-116); ASPARTATE AMINOTRANSFERASE 29 U/L (15-37); BILIRUBIN,TOTAL 0.5 mg/dL (0.1-1.0); LIPASE 105 U/L (73-393); TOTAL PROTEIN, SERUM 7.6 g/dL (6.4-8.2)
[2021-09-02 09:08] LABS: B-TYPE NATRIURETIC PEPTIDE 185 pg/mL (0-100)
[2021-09-02] MEDS ORDERED: ONDANSETRON HCL 4 MG/2 ML VIAL IVP ONE (11:00)
[2021-09-02] MEDS ORDERED: HYDROmorphone 2 MG/ML VIAL IVP ONE (11:00)
[2021-09-02 12:17] LABS: COVID AG,FIA SOURCE NASAL SWAB
[2021-09-02] MEDS ORDERED: MORPHINE SULFATE 4 MG/ML SYRINGE IVP PRN (18:00)
[2021-09-02] MEDS ORDERED: ONDANSETRON HCL 4 MG/2 ML VIAL IVP PRN (18:00)
[2021-09-02 19:06] VITALS: BP 143/68
[2021-09-02] MEDS ORDERED: ACETAMINOPHEN 325 MG TABLET PO ONE (19:15)
== END 2021-09-02 22:23 | disposition short-term general hospital (02) ==
LOC: EMS 07:55
DX: L89.214 Pressure ulcer of right hip, stage 4 (principal); E44.0 Moderate protein-calorie malnutrition; E11.9 Type 2 diabetes mellitus without complications; I10 Essential (primary) hypertension; E78.00 Pure hypercholesterolemia, unspecified; F17.210 Nicotine dependence, cigarettes, uncomplicated; Z88.0 Allergy status to penicillin; Z88.8 Allergy status to other drugs, medicaments and biological substances; Z79.4 Long term (current) use of insulin; Z79.899 Other long term (current) drug therapy; Z20.822 Contact with and (suspected) exposure to COVID-19; Z68.30 Body mass index [BMI] 30.0-30.9, adult
CPT/HCPCS: 36415; 51702; 71045; 80053; 83605; 83690; 83880; 85025; 87040; 87426; 93005; 96374; 96375; 99285; J1170; J2405